=== PATIENT | female | born 1990 | race Caucasian/White ===

== ENCOUNTER 2018-09-16 11:41 | Emergency (ER) | payer BC ==
[2018-09-16] MEDS ORDERED: Sodium Chloride 0.9% 1,000 ML IV ONE ×2 (12:24→13:24)
--- NOTE | 2018-09-16 12:30 | ED Physician Chart ---
ED Chief Complaint/HPI - Patient Information Date Seen:: 09/16/18 Time Seen:: 12:20 Chief Complaint:: nausea and vomiting History of Present Illness:: Patient's had nausea and vomiting for 4 days. She's been vomiting 2 times a day. She has epigastric pain. She denies nausea at present. Patient's last normal menstrual period was 2 months ago. Vitals:: Vital Signs - 8 hr 09/16/18 12:03 Temp 98.1 F HR 84 RR 16 BP 103/62 O2 Sat % 98 Historian:: Patient ED Review of Systems - Review of Systems General/Constitutional: No fever, No chills, No weight loss, No weakness, No diaphoresis, No edema, No loss of appetite Skin: No skin lesions, No rash, No bruising Head: No headache, No light-headedness Eyes: No loss of vision, No pain, No diplopia ENT: No earache, No nasal drainage, No sore throat, No tinnitus Neck: No neck pain, No swelling, No thyromegaly, No stiffness, No mass noted Cardio Vascular: No chest pain, No palpitations, No PND, No orthopnea, No edema Pulmonary: No SOB, No cough, No sputum, No wheezing GI: Nausea, Vomiting, No diarrhea, Pain, No melena, No hematochezia, No constipation, No hematemesis G/U: No dysuria, No frequency, No hematuria Musculoskeletal: No bone or joint pain, No back pain, No muscle pain Endocrine: No polyuria, No polydipsia Psychiatric: No prior psych history, No depression, No anxiety, No suicidal ideation Hematopoietic: No bruising, No lymphadenopathy Allergic/Immuno: No urticaria, No angioedema Neurological: No syncope, No focal symptoms, No weakness, No paresthesia, No headache, No seizure, No dizziness, No confusion, No vertigo ED Past Medical History - Past Medical History Past Medical History: No significant medical hx Family History: Diabetes Melitus Social History: Non Smoker, No Alcohol Surgical History: (3 sections) Psychiatricy History: None Medication: None ED Physical Exam - Physical Examination General/Constitutional: Awake, Well-developed, well-nourished, Alert, No distress, GCS 15, Non-toxic appearing, Ambulatory Head: Atraumatic Eyes: Lids, conjuctiva normal, PERRL, EOMI Skin: Nl inspection, No rash, No skin lesions, No ecchymosis, Well hydrated, No lymphadenopathy ENMT: External ears, nose nl, Nasal exam nl, Lips, teeth, gums nl Neck: Nontender, Full ROM w/o pain, No JVD, No nuchal rigidity, No bruit, No mass, No stridor Respiratory: Nl effort/Exclusion, Clear to Auscultation, No Wheeze/Rhonchi/Rales Cardio Vascular: RRR, No murmur, gallop, rubs, NL S1 S2 GI: Normal BS's, Nondistended, No mass/bruits, No McBurney tenderness Other GI comments:: Epigastric tenderness : No CVA tenderness Extremities: No tenderness or effusion, Full ROM, normal strength in all extremities, No edema, Normal digits & nails Neuro/Psych: Alert/oriented, DTR's symmetric, Normal sensory exam, Normal motor strength, Judgement/insight normal, Mood normal, Normal gait, No focal deficits Misc: Normal back, No paraspinal tenderness ED Labs/Radiology/EKG Results - Lab Results Results: Laboratory Tests 09/16/18 12:14 POC Ur Test Positive ED Assessment - Assessment General Assessment: After IV fluids patient felt better. ED Septic Shock - . Is Septic Shock (SBP<90, OR Lactate>4 mmol\L) present?: No - <6hrs of presentation: Vital Signs: Vital Signs - 8 hr 09/16/18 12:03 Temp 98.1 F HR 84 RR 16 BP 103/62 O2 Sat % 98 ED Reassessment (Disposition) - Reassessment Reassessment Condition:: Improved - Diagnosis Diagnosis:: Hyperemesis gravidarum; intrauterine - Aftercare/Follow up Instructions Aftercare/Follow-Up Instructions:: Refer to Discharge Instructions Medication Prescribed:: Reglan 10 mg #20 to take 1 3 times a day as necessary for nausea and vomiting. - Patient Disposition Discharge/Transfer:: Home Condition at Disposition:: Stable, Improved
[2018-09-16 12:41] LABS: URINE SOURCE CLEAN C
[2018-09-16 12:43] LABS: URINE BILIRUBIN NEGATIVE (NEGATIVE); URINE BLOOD NEGATIVE (NEGATIVE); URINE GLUCOSE (UA) NEGATIVE (NEGATIVE); URINE KETONE TRACE mg/dL (NEGATIVE); URINE LEUKOCYTE ESTERASE NEGATIVE (NEGATIVE); URINE MICROSCOPIC INDICATED? YES; URINE NITRATE NEGATIVE (NEGATIVE); URINE PROTEIN TRACE mg/dL (NEGATIVE); URINE UROBILINOGEN 0.2 E.U./dL (0.2 - 1.0)
[2018-09-16 12:44] LABS: % BASOPHILS 0.1 % (0.0-2.0); % EOSINOPHILS 0.7 % (0.0-5.0); % LYMPHOCYTES 20.1 % (20.0-50.0); % MONOCYTES 3.4 % (2.0-10.0); % NEUTROPHILS 75.7 % (40.0-80.0); HEMATOCRIT 36.8 % (41.0-60); HEMOGLOBIN 11.7 gm/dL (12-16); LYMPHOCYTE ABSOLUTE 1.4 Th/cmm (1.5-3.0); MEAN CELL VOLUME 69.3 fl (81-100); MEAN CORPUSCULAR HEMOGLOBIN 22.1 pg (27.0-31.0); MONOCYTE ABSOLUTE 0.2 Th/cmm (0.3-1.0); NEUTROPHILE ABSOLUTE 5.2 Th/cmm (1.8-8.0); PLATELET COUNT 255 Th/cmm (150-400); RED BLOOD COUNT 5.31 Mil/cmm (3.80-5.10); RED CELL DISTRIBUTION WIDTH 15.3 % (11.5-20.0); WHITE BLOOD COUNT 6.8 Th/cmm (4.8-10.8)
[2018-09-16 12:52] LABS: URINE CLARITY SLIGHT CLOUDY (CLEAR); URINE COLOR YELLOW
[2018-09-16 12:53] LABS: URINE RBC 0-2 /hpf (0-5)
[2018-09-16 12:54] LABS: URINE BACTERIA MANY /hpf (NONE SEEN); URINE EPITHELIAL CELLS MANY /lpf (FEW)
[2018-09-16 12:57] LABS: ANION GAP 13.3 (7.0-16.0); BUN - UREA NITROGEN 12 mg/dL (7-25); CALCIUM SERUM 9.2 mg/dL (8.6-10.3); CARBON DIOXIDE 22.3 mEq/L (21.0-31.0); CHLORIDE 103 mEq/L (98-107); CREATININE - SERUM 0.7 mg/dL (0.6-1.2); GFR AFRICAN-AMERICAN > 60.0 ml/min (>90); GFR NON AFRICAN-AMERICAN > 60.0 ml/min; GLUCOSE 103 mg/dL (70-105); MAGNESIUM 2.1 mg/dL (1.9-2.7); POTASSIUM SERUM 3.6 mEq/L (3.5-5.1); SODIUM SERUM 135 mEq/L (136-145)
== END 2018-09-16 14:08 | disposition home or self-care (01) ==
LOC: ER 11:41
DX: O21.0 Mild hyperemesis gravidarum (principal); O26.891 Other specified pregnancy related conditions, first trimester; R10.13 Epigastric pain; Z3A.00 Weeks of gestation of pregnancy not specified
CPT/HCPCS: 36415-UA; 80048-TC; 81001-TC; 81025-TC; 83735-TC; 85025-TC; 87086-90; J7030; Z7502

== ENCOUNTER 2018-09-21 20:20 | Emergency (ER) | payer BC ==
--- NOTE | 2018-09-21 20:53 | ED Physician Chart ---
ED Chief Complaint/HPI - Patient Information Date Seen:: 09/21/18 Time Seen:: 20:50 Chief Complaint:: Nausea and vomiting History of Present Illness:: 28 yo female , LMP 07/22/18, had positive test at [facility] ER 5 days ago due to nausea and vomiting. Patient was discharged home with Reglan. Pt has been feeling weak and lying in bed most of time. She would vomit whenever she stood up. Today, pt had increased emesis with new onset of low abdominal crampy pain and contraction of uterus. Pt was brought by to ER this evening. Pt had a copper IUD placed in May 2016. 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, No abnormal vaginal bleed, Contraction ED Past Medical History - Past Medical History Past Medical History: No significant medical hx Social History: Non Smoker, No Alcohol, No Drug Use Surgical History: (x 2) Family Medical History - Family Member Mother History Unknown: Yes ED Physical Exam - Physical Examination General/Constitutional: Awake, Alert Head: Atraumatic Eyes: PERRL, EOMI Other Skin comments:: Pale skin ENMT: Nasal exam nl Neck: No nuchal rigidity Respiratory: No Wheeze/Rhonchi/Rales Cardio Vascular: RRR, No murmur, gallop, rubs, NL S1 S2 GI: Nondistended Other GI comments:: Soft, low abdomen mild tenderness Extremities: normal strength in all extremities Neuro/Psych: No focal deficits ED Labs/Radiology/EKG Results - Lab Results Results: Laboratory Last Values WBC 9.1 Th/cmm (4.8-10.8) 09/21/18 21:05 RBC 5.44 Mil/cmm (3.80-5.10) H 09/21/18 21:05 Hgb 12.0 gm/dL (12-16) 09/21/18 21:05 Hct 37.6 % (41.0-60) L 09/21/18 21:05 MCV 69.1 fl (81-100) L 09/21/18 21:05 MCH 22.0 pg (27.0-31.0) L 09/21/18 21:05 MCHC Differential 31.8 pg (28.0-36.0) 09/21/18 21:05 RDW 16.2 % (11.5-20.0) 09/21/18 21:05 Plt Count 238 Th/cmm (150-400) 09/21/18 21:05 MPV 8.6 fl 09/21/18 21:05 Neutrophils % 76.2 % (40.0-80.0) 09/21/18 21:05 Lymphocytes % 17.7 % (20.0-50.0) L 09/21/18 21:05 Monocytes % 4.6 % (2.0-10.0) 09/21/18 21:05 Eosinophils % 0.6 % (0.0-5.0) 09/21/18 21:05 Basophils % 0.9 % (0.0-2.0) 09/21/18 21:05 Sodium 136 mEq/L (136-145) 09/21/18 21:05 Potassium 3.7 mEq/L (3.5-5.1) 09/21/18 21:05 Chloride 101 mEq/L (98-107) 09/21/18 21:05 Carbon Dioxide 20.4 mEq/L (21.0-31.0) L 09/21/18 21:05 Anion Gap 18.3 (7.0-16.0) H 09/21/18 21:05 BUN 14 mg/dL (7-25) 09/21/18 21:05 Creatinine 0.7 mg/dL (0.6-1.2) 09/21/18 21:05 Est GFR ( Amer) > 60.0 ml/min (>90) 09/21/18 21:05 Est GFR (Non-Af Amer) > 60.0 ml/min 09/21/18 21:05 BUN/Creatinine Ratio 20.0 09/21/18 21:05 Glucose 89 mg/dL (70-105) 09/21/18 21:05 Calcium 9.4 mg/dL (8.6-10.3) 09/21/18 21:05 Total Bilirubin 0.4 mg/dL (0.3-1.0) 09/21/18 21:05 AST 14 U/L (13-39) 09/21/18 21:05 ALT 10 U/L (7-52) 09/21/18 21:05 Alkaline Phosphatase 63 U/L (34-104) 09/21/18 21:05 Total Protein 8.3 gm/dL (6.0-8.3) 09/21/18 21:05 Albumin 4.5 gm/dL (3.7-5.3) 09/21/18 21:05 Globulin 3.8 gm/dL 09/21/18 21:05 Albumin/Globulin Ratio 1.2 (1.0-1.8) 09/21/18 21:05 Amylase 44 U/L (29-103) 09/21/18 21:05 Lipase 16 U/L (11-82) 09/21/18 21:05 Beta HCG, Quant [id number] mIU/mL (0-0) H* 09/21/18 21:05 Urine Source RANDOM 09/21/18 21:05 Urine Color YELLOW 09/21/18 21:05 Urine Clarity CLEAR (CLEAR) 09/21/18 21:05 Urine pH 6.0 (4.6 - 8.0) 09/21/18 21:05 Ur Specific [place] >= 1.030 (1.005-1.030) 09/21/18 21:05 Urine Protein TRACE mg/dL (NEGATIVE) 09/21/18 21:05 Urine Glucose (UA) NEGATIVE mg/dL (NEGATIVE) 09/21/18 21:05 Urine Ketones >=80 mg/dL (NEGATIVE) H 09/21/18 21:05 Urine Blood SMALL (NEGATIVE) H 09/21/18 21:05 Urine Nitrate NEGATIVE (NEGATIVE) 09/21/18 21:05 Urine Bilirubin SMALL (NEGATIVE) H 09/21/18 21:05 Urine Urobilinogen 0.2 E.U./dL (0.2 - 1.0) 09/21/18 21:05 Ur Leukocyte Esterase NEGATIVE (NEGATIVE) 09/21/18 21:05 Urine RBC 2-5 /hpf (0-5) 09/21/18 21:05 Urine WBC 0-2 /hpf (0-5) 09/21/18 21:05 Ur Epithelial Cells MODERATE /lpf (FEW) 09/21/18 21:05 Urine Bacteria 2+ /hpf (NONE SEEN) H 09/21/18 21:05 POC Ur Test Positive 09/21/18 20:51 - Radiology Results Results: OB pelvic ultrasound: - IUD visualized - Fluid collection with hyperechoic structure seen adjacent to gestation sac consistent with hemorrhage - Yolk sac visualized - heart rate 127 bpm - Gestation age: 6w4d by CRL ED Assessment - Assessment General Assessment: Gestation 6w4d Subchorionic hemorrhage IUD Assessment/Comments:: CBC, CMP, PT/PTT, hCG, NS 1L IV bolus Zofran 4mg IV x 1 Pt will be transferred to [facility] under Dr. Joseph. ED Septic Shock - . Is Septic Shock (SBP<90, OR Lactate>4 mmol\L) present?: No - <6hrs of presentation: Vital Signs: Vital Signs - 8 hr 09/21/18 20:23 Temp 98.1 F HR 84 RR 19 BP 110/66 O2 Sat % 99 ED Reassessment (Disposition) - Reassessment Reassessment Condition:: Improved - Patient Disposition Discharge/Transfer:: Acute Care (other hosp)
[2018-09-21 21:10] LABS: % BASOPHILS 0.9 % (0.0-2.0); % EOSINOPHILS 0.6 % (0.0-5.0); % LYMPHOCYTES 17.7 % (20.0-50.0); % MONOCYTES 4.6 % (2.0-10.0); % NEUTROPHILS 76.2 % (40.0-80.0); BASOPHILE ABSOLUTE 0.1 Th/cumm (0-0.2); EOSINOPHILE ABSOLUTE 0.1 Th/cmm (0.1-0.4); HEMATOCRIT 37.6 % (41.0-60); LYMPHOCYTE ABSOLUTE 1.6 Th/cmm (1.5-3.0); MEAN CELL VOLUME 69.1 fl (81-100); MEAN CORPUSCULAR HGB CONC 31.8 pg (28.0-36.0); MEAN PLATELET VOLUME 8.6 fl; MONOCYTE ABSOLUTE 0.4 Th/cmm (0.3-1.0); NEUTROPHILE ABSOLUTE 6.9 Th/cmm (1.8-8.0); PLATELET COUNT 238 Th/cmm (150-400); RED BLOOD COUNT 5.44 Mil/cmm (3.80-5.10); RED CELL DISTRIBUTION WIDTH 16.2 % (11.5-20.0); WHITE BLOOD COUNT 9.1 Th/cmm (4.8-10.8)
[2018-09-21 21:11] LABS: URINE SOURCE RANDOM
[2018-09-21 21:21] LABS: URINE BILIRUBIN SMALL (NEGATIVE); URINE BLOOD SMALL (NEGATIVE); URINE CLARITY CLEAR (CLEAR); URINE COLOR YELLOW; URINE GLUCOSE (UA) NEGATIVE (NEGATIVE); URINE KETONE >=80 mg/dL (NEGATIVE); URINE LEUKOCYTE ESTERASE NEGATIVE (NEGATIVE); URINE MICROSCOPIC INDICATED? YES; URINE NITRATE NEGATIVE (NEGATIVE); URINE PROTEIN TRACE mg/dL (NEGATIVE); URINE UROBILINOGEN 0.2 E.U./dL (0.2 - 1.0)
[2018-09-21] MEDS: Sodium Chloride 0.9% 1,000 ML IV ONE ×2 (21:28→22:30)
[2018-09-21 21:32] LABS: URINE BACTERIA 2+ /hpf (NONE SEEN); URINE EPITHELIAL CELLS MODERATE /lpf (FEW); URINE WBC 0-2 /hpf (0-5)
[2018-09-21 22:06] LABS: HCG QUANT 140909 mIU/mL (0-0)
[2018-09-21 22:59] LABS: ALB/GLOB RATIO 1.2 (1.0-1.8); ALBUMIN 4.5 gm/dL (3.7-5.3); ALKALINE PHOSPHATASE 63 U/L (34-104); AMYLASE SERUM 44 U/L (29-103); ANION GAP 18.3 (7.0-16.0); BILIRUBIN,TOTAL 0.4 mg/dL (0.3-1.0); BUN - UREA NITROGEN 14 mg/dL (7-25); CALCIUM SERUM 9.4 mg/dL (8.6-10.3); CARBON DIOXIDE 20.4 mEq/L (21.0-31.0); CHLORIDE 101 mEq/L (98-107); CREATININE - SERUM 0.7 mg/dL (0.6-1.2); GFR AFRICAN-AMERICAN > 60.0 ml/min (>90); GFR NON AFRICAN-AMERICAN > 60.0 ml/min; GLUCOSE 89 mg/dL (70-105); LIPASE 16 U/L (11-82); POTASSIUM SERUM 3.7 mEq/L (3.5-5.1); SGOT 14 U/L (13-39); SGPT/ALT 10 U/L (7-52); SODIUM SERUM 136 mEq/L (136-145); TOTAL PROTEIN,SERUM 8.3 gm/dL (6.0-8.3)
--- NOTE | 2018-09-22 08:33 | Diagnostic Imaging Report ---
Ultrasound OB, less than 14 weeks HISTORY: female with abdominal pain. LMP 07/22/2018 COMPARISON: None Technique: Longitudinal and transverse sonographic sector images of the pelvis were obtained transabdominally and transvaginally. FINDINGS: The uterus measures 8.5 x 7.4 x 7.9 cm. An IUD is noted. There also appears to be intrauterine gestational sac with prominent yolk sac identified. There appears to be a pole with heart rate of 128 bpm. The crown-rump length measures 0.79 cm corresponding to gestational age of 6 weeks and 5 days +/- 1week. Fluid collection is also seen adjacent to the gestational sac most suggestive of a subchorionic hemorrhage. This measures 1.8 x 1.7 cm. The right ovary measures 3.7 x 1.9 cm. Left ovary measures 4.0 x 2.1 cm. Vascular flow to ovaries is noted. There is suboptimal assessment of the ovaries. No free fluid identified. IMPRESSION: Intrauterine gestational sac noted with estimated gestational age of 6 weeks and 5 days +/- 1 week. Note is also an adjacent small subchorionic hemorrhage and additional IUD. Given these abnormal findings, correlation and follow-up OB consultation is recommended. No free fluid in the pelvis. Final results were administered to the referring team on 09/22/2018 at 8:30 AM.
== END 2018-09-22 00:45 | disposition short-term general hospital (02) ==
LOC: ER 20:20
DX: O21.9 Vomiting of pregnancy, unspecified (principal); O26.891 Other specified pregnancy related conditions, first trimester; R10.30 Lower abdominal pain, unspecified; M54.2 Cervicalgia; R51 Headache; R07.89 Other chest pain; H92.09 Otalgia, unspecified ear; R06.02 Shortness of breath; Z3A.01 Less than 8 weeks gestation of pregnancy; Z91.040 Latex allergy status
CPT/HCPCS: 99285; 96367; 96374; 76811; 36415; 84702; 85025; 87086; 81001; 82150; 81025; 83690; 80053; J2405